=== PATIENT | female | born 1990 | race Caucasian/White ===

== ENCOUNTER 2024-03-01 19:28 | Emergency (ER) | payer OTHER, SELFPAY ==
[2024-03-01 19:38] VITALS: BP 124/81; PULSE 78; RESP 18; TEMP 36.1; O2SAT 100
--- NOTE | 2024-03-01 19:38 | PC.NURSE ---
in br to obtain ua spec.
--- NOTE | 2024-03-01 19:47 | ED.FEMALEGU ---
HPI - Female Genitourinary General Chief complaint: Urogenital-Female Stated complaint: Urinary Problem History of Present Illness HPI Narrative: patient is a 33-year-old female, without significant past medical history, presents to [facility] with 2 day history of dysuria with slight abnormal vaginal discharge. She denies malodor, she denies STI concerns. She states that she believes she had a urinary tract infection and subsequently took 2 leftover tablet of metronidazole, which gave her significant symptom relief. She has no flank pain, no fever, no vomiting. She has 1 remaining dose of metronidazole in her possession and thought she needed more antibiotic therapy, prompting her visit. She denies chance of . She has no other complaints. Related Data Home Medications Medication Instructions Recorded Confirmed buspirone 15 mg tablet mg 03/01/24 drospirenone 3 mg-ethinyl tablet 03/01/24 estradiol 0.02 mg tablet (Citlalyynelizabeth (28)) fluoxetine 20 mg capsule mg 03/01/24 fluoxetine 40 mg capsule mg 03/01/24 lamotrigine 200 mg tablet mg 03/01/24 Allergies Allergy/AdvReac Type Severity Reaction Status Date / Time No Known Allergies Allergy Verified 03/01/24 19:37 Review of Systems Genitourinary: Comments: Refer to HPI Exam Const: General: healthy appearing, no acute distress and alert Nutritional Appearance: well nourished Orientation/consciousness: patient oriented x3 Limitations: no limitations HENMT: Head: normal to inspection Ears: external ears normal Mouth: Yes Normal oral and palatal mucosa present Eyes: Conjunctivae: conjunctivae normal EOM: EOMs intact bilaterally Neck: Neck: normal visual inspection and no meningeal signs Resp: Effort & Inspection: normal respiratory effort Auscultation: clear to auscultation bilaterally Cardio: Rate: regular rate Rhythm: regular rhythm GI: GI Palp: Yes Soft to palpation, No Tenderness to palpation present (GI), No Guarding due to palpation present (GI), No Rigid due to palpation, No Hernia present, No Palpable mass present and No Rebound tenderness present : General: Yes bladder normal to palpation and Yes no CVA tenderness Skin: General skin exam: normal color Rashes: no rashes Neuro: General: patient oriented x3, moves all extremities, no meningeal signs, no focal motor deficits and CN's II-XI intact bilaterally Cranial nerves: Yes Nystagmus not present Speech: normal speech Gait exam (Neuro): Normal gait present Extrem: General: normal to inspection, no clubbing, cyanosis or edema and no pedal edema Psych: Appearance: grossly normal Mental Status: mental status grossly normal Affect: normal affect Course Course Emergency Course: Patient's urine dipstick is unremarkable. Urine cultures ordered. Patient's symptoms improved with metronidazole, therefore, will continue metronidazole therapy however she is advised that this is not a typical antibiotic use for acute cystitis and concerns for fracture vaginosis versus STI are mentioned. Patient states that she is not a risk for an STI as she is in a monogamous relationship and she has declined her STI screening stay. She does agree to follow-up with her OBGYN of her symptoms are not resolving and she will Proceed the ER if her symptoms worsen or she develops fevers, flank pain or vomiting. Level of Care: Express Care Visit ([id number]) Vital Signs Vital signs: Vital Signs Temperature 36.1 C L 03/01/24 19:38 Pulse Rate 78 03/01/24 19:38 Respiratory Rate 18 03/01/24 19:38 Blood Pressure 124/81 03/01/24 19:38 Pulse Oximetry 100 03/01/24 19:38 Oxygen Delivery Room Air 03/01/24 19:38 Temperature 36.1 C L 03/01/24 19:38 Pulse Rate 78 03/01/24 19:38 Respiratory Rate 18 03/01/24 19:38 Blood Pressure 124/81 03/01/24 19:38 Pulse Oximetry 100 03/01/24 19:38 Oxygen Delivery Room Air 03/01/24 19:38 MDM - Female Genitourinary MDM Narrative
[2024-03-02 03:21] LABS: EDUAAPPEAR Cloudy; EDUABILI Negative; EDUABLOOD Negative; EDUACOLOR1 Yellow; EDUAGLUCOSE Negative; EDUAKETONE Negative; EDUALEUKO Negative; EDUANITRATE Negative; EDUAPROTEIN Negative; EDUAUROBILI 0.2
== END 2024-03-01 20:02 | disposition home or self-care (01) ==
PROVIDERS: Emergency Provider Nurse Practitioner Family; PCP Physician Assistant
DX: R30.0 Dysuria (principal)
CPT/HCPCS: 81003; 87086; 99203; G0463

== ENCOUNTER 2024-08-29 16:40 | Emergency (ER) | payer OTHER, SELFPAY ==
[2024-08-29 16:54] VITALS: BP 128/80; PULSE 93; RESP 16; TEMP 36.6; O2SAT 98
[2024-08-29 17:19] LABS: EDCOVIDSCREEN Negative (Negative); EDINFLUASCREEN Positive (Negative); EDINFLUBSCREEN Negative (Negative)
--- NOTE | 2024-08-29 17:49 | ED_ITS ---
HPI - General Adult General Chief complaint: Upper Respiratory Infection Stated complaint: Vomiting/Diarrhea/Body Aches/Chills Source: patient Mode of arrival: ambulatory Limitations: no limitations History of Present Illness HPI narrative: Patient presents for evaluation sick symptoms for last 2 days. Symptoms body aches, cough, nausea, vomiting, diarrhea hot flashes and chills. She denies any fever shortness of breath. Her daughter is being evaluated here for similar symptoms. Her son also has similar symptoms. She is taking Tylenol and ibuprofen for symptoms. She smokes half pack per day. Related Data Home Medications ?Medication ?Instructions ?Recorded ?Confirmed ?Last Taken ?Type buspirone 15 mg tablet 15 mg PO DAILY 03/01/24 Unknown History drospirenone 3 mg-ethinyl 1 tablet PO DAILY 03/01/24 Unknown History estradiol 0.02 mg tablet (Loryna (28)) fluoxetine 20 mg capsule mg 03/01/24 Unknown History fluoxetine 40 mg capsule 40 mg PO QPM 03/01/24 Unknown History lamotrigine 200 mg tablet 200 mg PO Q12H 03/01/24 Unknown History bupropion HCl 150 mg tablet,12 hr 150 mg PO Q12H 08/29/24 Unknown History sustained-release sumatriptan succinate 50 mg tablet mg PO 08/29/24 Unknown History Allergies Allergy/AdvReac Type Severity Reaction Status Date / Time No Known Allergies Allergy Verified 08/29/24 16:51 Review of Systems Review of Systems: CONSTITUTIONAL: Reports hot flashes and chills. Denies fever. EYES: Denies visual changes, redness, or discharge. ENT: Denies rhinorrhea, congestion, sore throat, or otalgia. CARDIOVASCULAR: Denies chest pain, palpitations, or edema. RESPIRATORY: Reports cough. Denies shortness of breath. GASTROINTESTINAL: Reports nausea, vomiting, diarrhea GENITOURINARY: Denies dysuria or hematuria. SKIN: Denies rash or itching. MUSCULOSKELETAL: Reports generalized body aches. NEUROLOGIC: Denies headache, numbness, dizziness, or weakness. PSYCHIATRIC: Denies anxiety or depression. [facility] Past Medical History Medical History Anxiety Depression Surgical History Surgical History No pertinent past surgical history Family History Family History (Reviewed 08/29/24 @ 17:51 by Denis Sharp [facility], ) Mother Family history non-contributory Social History Social History (Reviewed 08/29/24 @ 17:51 by Denis Sharp [facility], ) Smoking packs per day: 0.5 Smoking cigarettes per day: 10.0 Smoking status: Current every day smoker Tobacco type: cigarettes and e-cigarettes/vaping Living arrangements: with family Gender identity (if verbalized by the patient): Female Spiritual care concerns: No Exam Narrative: GENERAL: Well-appearing, well-nourished, and in no acute distress. HEAD: Normocephalic, atraumatic. EYES: PERRLA and EOMI. ENT: Nares clear, no rhinorrhea or epistaxis. Mucous membranes moist. Oropharynx without tonsillar hypertrophy exudate or other lesions. Bilateral TMs pearly hernandez nonbulging NECK: Supple. No adenopathy or masses. No carotid bruits or JVD CHEST: Clear to auscultation. No respiratory distress. No wheezes rales or rhonchi HEART: Regular rate and rhythm. No murmur heard. Normal peripheral pulses. ABDOMEN: Soft, nontender, nondistended, normal active bowel sounds. EXTREMITIES: Normal range of motion. No edema. SKIN: Warm, dry, no rash. NEURO: No focal deficits. Alert and oriented x3. PSYCH: Normal mood and affect. Course Course Emergency Course: This is a 33-year-old female who presented for evaluation of sick symptoms. Influenza B and COVID negative. Influenza A positive. Will treat with Tamiflu and Zofran. Increase hydration. [id number] agents for symptom management. Follow up with primary provider. Go to the ER for worsening symptoms. Patient in agreement with plan of care. Level of Care: Express Care Visit Vital Signs Vital signs: Vital Signs Temperature 36.6 C 08/29/24 16:54 Pulse Rate 93 08/29/24 16:54 Respiratory Rate 16 08/29/24 16:54 Blood Pressure 128/80 08/29/24 16:54 Pulse Oximetry 98 08/29/24 16:54 Oxygen Delivery Room Air 08/29/24 16:54 Temperature 36.6 C 08/29/24 16:54 Pulse Rate 93 08/29/24 16:54 Respiratory Rate 16 08/29/24 16:54 Blood Pressure 128/80 08/29/24 16:54 Pulse Oximetry 98 08/29/24 16:54 Oxygen Delivery Room Air 08/29/24 16:54 Medical Decision Making Vital Signs Vital Signs: Vital Signs Temperature 36.6 C 08/29/24 16:54 Pulse Rate 93 08/29/24 16:54 Respiratory Rate 16 08/29/24 16:54 Blood Pressure 128/80 08/29/24 16:54 Pulse Oximetry 98 08/29/24 16:54 Oxygen Delivery Room Air 08/29/24 16:54 Temperature 36.6 C 08/29/24 16:54 Pulse Rate 93 08/29/24 16:54 Respiratory Rate 16 08/29/24 16:54 Blood Pressure 128/80 08/29/24 16:54 Pulse Oximetry 98 08/29/24 16:54 Oxygen Delivery Room Air 08/29/24 16:54 Lab Data Labs: Lab Results 08/29/24 Range/Units 17:17 POC Influenza A Ag Positive (Negative) POC Influenza B Ag Negative (Negative) POC SARS CoV-2 Ag Negative (Negative) Discharge Plan Discharge Clinical Impression: Influenza A Patient Disposition: Home, Self-Care Condition: Stable Instructions: Antibiotic Form, Influenza (ED) Patient Language: Icelandic Prescriptions: New oseltamivir [Tamiflu] 75 mg capsule 75 mg PO Q12H 5 Days Qty: 10 0RF ondansetron 4 mg tablet,disintegrating 4 mg PO Q8H PRN (Reason: nausea and vomiting) Qty: 15 0RF No Action fluoxetine 40 mg capsule 40 mg PO QPM lamotrigine 200 mg tablet 200 mg PO Q12H fluoxetine 20 mg capsule buspirone 15 mg tablet 15 mg PO DAILY drospirenone-ethinyl estradiol [Loryna (28)] 3-0.02 mg tablet 1 tablet PO DAILY bupropion HCl 150 mg tablet sustained-release 12 hr 150 mg PO Q12H sumatriptan succinate 50 mg tablet PO Follow-up/Referrals: Ciera,KAMRON García [Primary Care Provider] - Stand Alone Forms: Work/School Release IP Time of Disposition: 17:38
--- OUTSIDE RECORDS SUMMARY | 2024-08-31 03:20 | XMS_ITS | Clinical Summary ---
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 BRAR SYSTEMS SOFTWARE DESIGNER Active Last Documented On 03/17/2020 2:24PM ; [facility] Note: Sees psych in [facility] Plan of Treatment No Plan of Treatment Recorded Assessments Includes: Assessments from this encounter No Assessments Recorded Medical Equipment - Implanted Devices Includes: Current Devices No Medical Equipment Recorded Medications Includes: Medications discussed during this encounter and other current Medications Current Medications (continue as prescribed) FLUoxetine HCl 40 MG Oral Capsule 03/17/2020 Provide r: Diagnosis: Last Documented On 03/17/2020 1:48PM By SIM MORALES ; [facility] LaMICtal 200 MG Oral Tablet 03/17/2020 Provider: Diagnosis: Last Documented On 03/17/2020 1:49PM By SIM MORALES ; [facility] Medications Administered Includes: Administered Medications from this encounter No Administered Medications Recorded Results Includes: Results discussed during this encounter No Results Recorded For Specified Dates History of Present Illness Includes: History of Present Illness from this encounter No History of Present Illness Recorded Social History No Social History Recorded - Smoking Status Unknown Medical History Includes: Medical History addressed during this encounter No Medical History Recorded Family History Includes: Family History addressed during this encounter No Family History Recorded Review of Systems Includes: Review of Systems from this encounter No Review of Systems Recorded Mental Status Includes: Mental Status from this encounter No Mental Status Recorded Functional Status Includes: Functional Status from this encounter No Functional Status Recorded Physical Exam Includes: Physical Exam from this encounter No Physical Exam Recorded Allergies Includes: Active Allergies Substance Type Reaction Onset Date Resolved Date Statu s Latex Allergy Skin Rashes / Er uption of skin, Hives / Urticaria 09/03/2015 Active Last Documented On 0 1:49PM ; [facility] Amoxicillin Allergy Skin Rashes / Er uption of skin, Hives / Urticaria 09/03/2015 Resolved Last Documented On 0 1:50PM ; [facility] Encounters Encounter Provider Location Date Check-In Time Check-Out Time Diagnosis [Patient Encounter] JORGE BRAR [facility] 03/11/20 21 3:33PM 11:59PM Insurance Includes: Active Insurance Policies Plan Name Member ID Group # Subscriber Relationship Effect citlali Dates - [facility] [id number] DIDIER Rios Clinical Notes Includes: Clinical Notes from this encounter No Clinical Notes Recorded
--- OUTSIDE RECORDS SUMMARY | 2024-08-31 03:20 | XMS_ITS ---
Author Organization [facility] Address [address] [place] [address] Phone Care Team Providers Care Proposal Consultant Name Role Phone MARK LEE MD Primary Care Provider Unavail able Problems Includes: Active, inactive, and resolved Problems All Visits Onset Date Resolved Date Provider Condition S tatus Exposure To Herpes Simplex 09/03/2015 Unknown BERENICE SMITH MD Resolved Last Documented On 09/03/2015 2:58PM ; [facility] Note: was Closed. History of Depression 09/03/2015 Unknown BERENICE SMITH MD Resolved Last Documented On 09/03/2015 2:58PM ; [facility] Note: was Closed. History of Diabetes Mellitus 09/03/2015 Unknown BERENICE SMITH MD Resolved Last Documented On 09/03/2015 2:58PM ; [facility] Note: was Closed. History of Essential Hypertension 09/03/2015 Unknown BERENICE SMITH MD Resolved Last Documented On 09/03/2015 2:58PM ; [facility] Note: was Closed. History of Heart Disease 09/03/2015 Unknown BERENICE SMITH MD Resolved Last Documented On 09/03/2015 2:58PM ; [facility] Note: was Closed. History of Hematologic Disorders 09/03/2015 Unknown BERENICE SMITH MD Resolved Last Documented On 09/03/2015 2:58PM ; [facility] Note: was Closed. History of Psychiatric Disorders 09/03/2015 Unknown BERENICE SMITH MD Resolved Last Documented On 09/03/2015 2:58PM ; [facility] Note: was Closed. Reported Family History of Defects 09/03/2015 Unknown BERENICE SMITH MD Resolved Last Documented On 09/03/2015 2:58PM ; [facility] Note: was Closed. Respiratory Disorders 09/03/2015 Unknown BERENICE SMITH MD Resolved Last Documented On 09/03/2015 2:58PM ; [facility] Note: was Closed. Smoking During 09/03/2015 Unknown BERENICE SMITH MD Resolved Last Documented On 09/03/2015 2:58PM ; [facility] Note: was Closed. Tobacco Use 09/03/2015 Unknown BERENICE SMITH MD Resolved Last Documented On 09/03/2015 2:58PM ; [facility] Note: was Closed. Major depressive disorder, recurrent, moderate 03/17/2015 JORGE VASQUEZ Active Last Documented On 03/17/2020 2:24PM ; [facility] Note: Sees psych in [facility] [place] Plan of Treatment Findings Encounter Date Follow up: Yearly and as charlette pickard Gave Zyrtec samples. Patient to follow up if migraines do not improve with Zyrtec We will call with lab results NEW PATIENT VISIT with JORGE VASQUEZ 03/17/2020 Last Documented On 0 2:47PM ; [facility] Ordered return to the clinic if condition worsens or new symptoms arise NEW PATIENT VISIT with JORGE BRAR MULTICRAFT OPERATOR 03/17/2020 Last Documented On 0 2:47PM ; [facility] Assessments Includes: Assessments for all patient encounters Findings Encounter Date Allergic rhinitis NEW PATIENT VISIT with JORGE VASQUEZ 03/17/2020 Last Documented On 0 2:47PM ; [facility] Classic migraine (with aura) without intractable migraine without status migrainosus NEW PATIENT VISIT with JORGE BRAR MULTICRAFT OPERATOR 03/17/2020 Last Documented On 0 2:47PM ; [facility] Contraceptive management NEW PATIENT VISIT with JORGE VASQUEZ 03/17/2020 Last Documented On 0 2:47PM ; [facility] Routine adult history and ph ysical (18-64 yrs) with abnormal findings NEW PATIENT VISIT with JORGE BRAR MULTICRAFT OPERATOR 03/17/2020 Last Documented On 0 2:47PM ; [facility] Medical Equipment - Implanted Devices Includes: Current and historical Devices No Medical Equipment Recorded Medications Includes: Current and historical Medications Current Medications (continue as prescribed) FLUoxetine HCl 40 MG Oral Capsule 03/17/2020 Provide r: Diagnosis: Last Documented On 03/17/2020 1:48PM By SIM MORALES ; [facility] LaMICtal 200 MG Oral Tablet 03/17/2020 Provider: Diagnosis: Last Documented On 03/17/2020 1:49PM By SIM MORALES ; [facility] Past Medications on file Drospirenone-Ethinyl Estradi ol 3-0.02 MG Oral Tablet 03/06/2021 - 02/05/2022 Provider: JORGE VASQUEZ Diagnosis: TAKE ONE TABLET BY MOUTH DAILY Last Documented On 03/06/2021 9:10AM By JORGE BRAR CORPORATE SCHEDULER ; [facility] CIRO 3-0.02 MG Oral Tablet 03/17/2020 - 03/12/2021 Prov ider: JORGE BRAR MULTICRAFT OPERATOR Diagnosis: One tablet daily Last Documented On 03/17/2020 2:29PM By JORGE BRAR CORPORATE SCHEDULER ; [facility] CIRO 3-0.02 MG Oral Tablet 03/17/2020 - 03/17/2020 Prov ider: Diagnosis: Last Documented On 03/17/2020 2:28PM By JORGE BRAR CORPORATE SCHEDULER ; [facility] Effexor XR 150 MG Capsule Ex tended Release 24 Hour 09/03/2015 - 03/17/2020 Provider: Diagnosis: Last Documented On 03/17/2020 1:49PM By SIM MORALES ; [facility] Wellbutrin SR 150 MG Tablet Extended Release 12 Hour 09/03/2015 - 03/17/2020 Provider: Diagnosis: Last Documented On 03/17/2020 1:49PM By SIM MORALES ; [facility] GoodSense Vitamins 28-0.8 MG Tablet 6 - 03/17/2020 Provider: Diagnosis: Last Documented On 03/17/2020 1:49PM By SIM MORALES ; [facility] Medications Administered Includes: Administered Medications in patient's chart No Administered Medications Recorded Results Includes: Results from 08/31/2023 through 08/31/2024 No Results Recorded For Specified Dates History of Present Illness History of Present Illness not supported for this document type No History of Present Illness Recorded Social History Description Last Updated Smoker 03/17/2020 Last Documented On 0 2:47PM ; [facility] Tobacco use 09/03/2015 Last Documented On 6 2:46PM ; [facility] Smoking Status Unknown Medical History Includes: Medical History in patient's chart Description Last Updated History of depression 09/03/2015 Last Documented On 6 2:46PM ; [facility] History of heart disease 09/03/2015 Last Documented On 6 2:46PM ; [facility] History of hematologic disorder 09/03/19 16 Last Documented On 6 2:46PM ; [facility] History of psychiatric disorders 016 Last Documented On 6 2:46PM ; [facility] Family History Includes: Family History in patient's chart No Family History Recorded Review of Systems Review of Systems not supported for this document type No Review of Systems Recorded Mental Status No Mental Status Recorded Functional Status No Functional Status Recorded Physical Exam Physical Exam not supported for this document type No Physical Exam Recorded Allergies Includes: Active, inactive, and resolved Allergies Substance Type Reaction Onset Date Resolved Date Statu s Latex Allergy Skin Rashes / Er uption of skin, Hives / Urticaria 09/03/2015 Active Last Documented On 0 1:49PM ; [facility] Amoxicillin Allergy Skin Rashes / Er uption of skin, Hives / Urticaria 09/03/2015 Resolved Last Documented On 0 1:50PM ; [facility] Insurance Includes: Active Insurance Policies Plan Name Member ID Group # Subscriber Relationship Effect citlali Dates 1 - [facility] [id number] DIDIER Rios Clinical Notes Includes: Signed Clinical Notes starting from 08/27/2022 No Clinical Notes Recorded
--- OUTSIDE RECORDS SUMMARY | 2024-08-31 03:20 | XMS_ITS ---
Care Plan - [facility] Created on: August 31, 2024 DIDIER KENYON : 1990 Sex: Female Author Organization [facility] Address [address] [place] [address] Phone Care Team Providers Care Automotive Service Director Name Role Phone MARK LEE MD Primary Care Provider Unavail able
--- OUTSIDE RECORDS SUMMARY | 2024-08-31 03:20 | XMS_ITS | Clinical Summary ---
Author Organization [facility] Address [address] [place] [address] Phone Care Team Providers Care Gambling Monitor Name Role Phone MARK LEE MD Primary Care Provider Unavail able Reason for Visit and Chief Complaint [Patient Encounter] Problems Includes: Problems addressed during this encounter and other active Problems All Visits Onset Date Resolved Date Provider Condition S tatus Major depressive disorder, recurrent, moderate 03/17/2015 JORGE BRAR WIRE SPOOLER Active Last Documented On 03/17/2020 2:24PM ; [facility] Note: Sees psych in [facility] Plan of Treatment No Plan of [...] On 03/17/2020 1:48PM By SIM MORALES ; [facility] LaMICtal 200 MG Oral Tablet 03/17/2020 Provider: Diagnosis: Last Documented On 03/17/2020 1:49PM By SIM MORALES ; [facility] Medications Administered Includes: Administered Medications from this [...] Active Last Documented On 0 1:49PM ; [facility] Amoxicillin Allergy Skin Rashes / Er uption of skin, Hives / Urticaria 09/03/2015 Resolved Last Documented On 0 1:50PM ; [facility] Encounters Encounter Provider Location Date Check-In Time Check-Out Time Diagnosis [Patient Encounter] JORGE BRAR [facility] 03/11/20 21 3:34PM 11:59PM Insurance Includes: Active Insurance Policies Plan Name Member ID Group # Subscriber Relationship Effect citlali Dates - [facility] [id number] DIDIER Rios Clinical Notes Includes: Clinical Notes from this encounter No Clinical Notes Recorded
--- OUTSIDE RECORDS SUMMARY | 2024-08-31 03:21 | XMS_ITS ---
Author Organization [facility] Address [address] [place] [address] Phone Care Team Providers Care Flat Grinder Operator Name Role Phone MARK LEE MD Primary Care Provider Unavail able Problems Includes: Active, inactive, and resolved Problems All Visits Onset Date Resolved Date Provider Condition S tatus Exposure To Herpes Simplex 09/03/2015 Unknown BERENICE SMITH MD Resolved Last Documented On 09/03/2015 2:58PM ; [facility] Note: was Closed. History of Depression 09/03/2015 Unknown BERENICE SMITH MD Resolved Last Documented On 09/03/2015 2:58PM ; [facility] Note: was Closed. History of Diabetes Mellitus 09/03/2015 Unknown BERENICE SMITH MD Resolved Last Documented On 09/03/2015 2:58PM ; [facility] Note: was Closed. History of Essential Hypertension 09/03/2015 Unknown BERENICE SMITH MD Resolved Last Documented On 09/03/2015 2:58PM ; [facility] Note: was Closed. History of Heart Disease 09/03/2015 Unknown BERENICE SMITH MD Resolved Last Documented On 09/03/2015 2:58PM ; [facility] Note: was Closed. History of Hematologic Disorders 09/03/2015 Unknown BERENICE SMITH MD Resolved Last Documented On 09/03/2015 2:58PM ; [facility] Note: was Closed. History of Psychiatric Disorders 09/03/2015 Unknown BERENICE SMITH MD Resolved Last Documented On 09/03/2015 2:58PM ; [facility] Note: was Closed. Reported Family History of Defects 09/03/2015 Unknown BERENICE SMITH MD Resolved Last Documented On 09/03/2015 2:58PM ; [facility] Note: was Closed. Respiratory Disorders 09/03/2015 Unknown BERENICE SMITH MD Resolved Last Documented On 09/03/2015 2:58PM ; [facility] Note: was Closed. Smoking During 09/03/2015 Unknown BERENICE SMITH MD Resolved Last Documented On 09/03/2015 2:58PM ; [facility] Note: was Closed. Tobacco Use 09/03/2015 Unknown BERENICE SMITH MD Resolved Last Documented On 09/03/2015 2:58PM ; [facility] Note: was Closed. Major depressive disorder, recurrent, moderate 03/17/2015 JORGE VASQUEZ Active Last Documented On 03/17/2020 2:24PM ; [facility] Note: Sees psych in [facility] Plan of Treatment Findings Encounter Date Follow up: Yearly and as charlette pickard Gave Zyrtec samples. Patient to follow up if migraines do not improve with Zyrtec We will call with lab results NEW PATIENT VISIT with JORGE VASQUEZ 03/17/2020 Last Documented On 0 2:47PM ; [facility] Ordered return to the clinic if condition worsens or new symptoms arise NEW PATIENT VISIT with JORGE BRAR HAND SPRING REPAIRER HELPER 03/17/2020 Last Documented On 0 2:47PM ; [facility] Assessments Includes: Assessments for all patient encounters Findings Encounter Date Allergic rhinitis NEW PATIENT VISIT with JORGE VASQUEZ 03/17/2020 Last Documented On 0 2:47PM ; [facility] Classic migraine (with aura) without intractable migraine without status migrainosus NEW PATIENT VISIT with JORGE BRAR HAND SPRING REPAIRER HELPER 03/17/2020 Last Documented On 0 2:47PM ; [facility] Contraceptive management NEW PATIENT VISIT with JORGE VASQUEZ 03/17/2020 Last Documented On 0 2:47PM ; [facility] Routine adult history and ph ysical (18-64 yrs) with abnormal findings NEW PATIENT VISIT with JORGE BRAR HAND SPRING REPAIRER HELPER 03/17/2020 Last Documented On 0 2:47PM ; [facility] Medical Equipment - Implanted Devices Includes: Current and historical Devices No Medical Equipment Recorded Medications Includes: Current and historical Medications Current Medications (continue as prescribed) FLUoxetine HCl 40 MG Oral Capsule 03/17/2020 Provide r: Diagnosis: Last Documented On 03/17/2020 1:48PM By SIM MORALES ; [facility] LaMICtal 200 MG Oral Tablet 03/17/2020 Provider: Diagnosis: Last Documented On 03/17/2020 1:49PM By SIM MORALES ; [facility] Past Medications on file Drospirenone-Ethinyl Estradi ol 3-0.02 MG Oral Tablet 03/06/2021 - 02/05/2022 Provider: JORGE VASQUEZ Diagnosis: TAKE ONE TABLET BY MOUTH DAILY Last Documented On 03/06/2021 9:10AM By JORGE BRAR TIRE WRAPPER ; [facility] CIRO 3-0.02 MG Oral Tablet 03/17/2020 - 03/12/2021 Prov ider: JORGE BRRA HAND SPRING REPAIRER HELPER Diagnosis: One tablet daily Last Documented On 03/17/2020 2:29PM By JORGE BRAR TIRE WRAPPER ; [facility] CIRO 3-0.02 MG Oral Tablet 03/17/2020 - 03/17/2020 Prov ider: Diagnosis: Last Documented On 03/17/2020 2:28PM By JORGE BRAR TIRE WRAPPER ; [facility] Effexor XR 150 MG Capsule Ex tended Release 24 Hour 09/03/2015 - 03/17/2020 Provider: Diagnosis: Last Documented On 03/17/2020 1:49PM By SIM MORALES ; [facility] Wellbutrin SR 150 MG Tablet Extended Release 12 Hour 09/03/2015 - 03/17/2020 Provider: Diagnosis: Last Documented On 03/17/2020 1:49PM By SIM MORALES ; [facility] GoodSense Vitamins 28-0.8 MG Tablet 6 - 03/17/2020 Provider: Diagnosis: Last Documented On 03/17/2020 1:49PM By SIM MORALES ; [facility] Medications Administered Includes: Administered Medications in patient's chart No Administered Medications Recorded Results Includes: Results from 08/31/2023 through 08/31/2024 No Results Recorded For Specified Dates History of Present Illness History of Present Illness not supported for this document type No History of Present Illness Recorded Social History Description Last Updated Smoker 03/17/2020 Last Documented On 0 2:47PM ; [facility] Tobacco use 09/03/2015 Last Documented On 6 2:46PM ; [facility] Smoking Status Unknown Medical History Includes: Medical History in patient's chart Description Last Updated History of depression 09/03/2015 Last Documented On 6 2:46PM ; [facility] History of heart disease 09/03/2015 Last Documented On 6 2:46PM ; [facility] History of hematologic disorder 09/03/19 16 Last Documented On 6 2:46PM ; [facility] History of psychiatric disorders 016 Last Documented On 6 2:46PM ; [facility] Family History Includes: Family History in patient's [...] Active Last Documented On 0 1:49PM ; [facility] Amoxicillin Allergy Skin Rashes / Er uption of skin, Hives / Urticaria 09/03/2015 Resolved Last Documented On 0 1:50PM ; [facility] Insurance Includes: Active Insurance Policies Plan Name Member ID Group # Subscriber Relationship Effect citlali Dates 1 - [facility] [id number] DIDIER Rios Clinical Notes Includes: Signed Clinical Notes starting from 08/27/2022 No Clinical Notes Recorded
--- OUTSIDE RECORDS SUMMARY | 2024-08-31 03:21 | XMS_ITS | Clinical Summary ---
Author Organization [facility] Address [address] [place] [address] Phone Care Team Providers Care Network Firewall Engineer Name Role Phone MARK LEE MD Primary Care Provider Unavail able Reason for Visit and Chief Complaint The Chief Complaint is: Patient is here to become established and is needing ocp refilled. She states she has been getting migraine headaches lately. She says she has had about 3 a week and takes benadryl and excedrine migraine which seems to help Problems Includes: Problems addressed during this encounter and other active Problems Current Visit Onset Date Resolved Date Provider Condwellingtono n Status History of Depression 09/03/2015 Unknown BERENICE SMITH MD Resolved Last Documented On 09/03/2015 2:58PM ; [facility] Note: was Closed. History of Heart Disease 09/03/2015 Unknown BERENICE SMITH MD Resolved Last Documented On 09/03/2015 2:58PM ; [facility] Note: was Closed. History of Hematologic Disorders 09/03/2015 Unknown BERENICE SMITH MD Resolved Last Documented On 09/03/2015 2:58PM ; [facility] Note: was Closed. History of Psychiatric Disorders 09/03/2015 Unknown BERENICE SMITH MD Resolved Last Documented On 09/03/2015 2:58PM ; [facility] Note: was Closed. Tobacco Use 09/03/2015 Unknown BERENICE SMITH MD Resolved Last Documented On 09/03/2015 2:58PM ; [facility] Note: was Closed. Major depressive disorder, recurrent, moderate 03/17/2015 JORGE BRAR ELECTRICAL CHECKOUT MECHANIC Active Last Documented On 03/17/2020 2:24PM ; [facility] Note: Sees psych in [facility] Plan of Treatment - Return to the clinic if condition worsens or new symptoms arise - Last Documented On 03/17/2020 2:47PM ; [facility] Follow up: Yearly and as needed Gave Zyrtec samples. Patient to follow up if migraines do not improve with Zyrtec We will call with lab results. - Last Documented On 03/17/2020 2:47PM ; [facility] Pending Tests Order Diagnosis Results Due Ordering Torsten patel Lab COMPREHENSIVE METABOLIC PANEL JORGE N MAYKEL ELECTRICAL CHECKOUT MECHANIC Last Documented On 1 2:55PM ; [facility] Lab LIPID PANEL, STANDARD 04/16/20 ALL CONNIE N SAGEZ ELECTRICAL CHECKOUT MECHANIC Last Documented On 1 2:55PM ; [facility] Assessments Includes: Assessments from this encounter Findings - [Z30.09 - Encounter for other general counseling and advice on contraception] Contraceptive management - Last Documented On 03/17/2020 2:47PM ; [facility] - [Z00.01 - Encounter for general adult medical examination with abnormal findings] Routine adult history and physical (18-64 yrs) with abnormal findings - Last Documented On 03/17/2020 2:47PM ; [facility] - [J30.9 - Allergic rhinitis, unspecified] Allergic rhinitis - Last Documented On 03/17/2020 2:47PM ; [facility] - [G43.109 - Migraine with aura, not intractable, without status migrainosus] Classic migraine (with aura) without intractable migraine without status migrainosus - Last Documented On 03/17/2020 2:47PM ; [facility] Medical Equipment - Implanted Devices Includes: Current Devices No Medical Equipment Recorded Medications Includes: Medications discussed during this encounter and other current Medications Discontinued / Stopped on this date on 09/03/2015 Effexor XR 150 MG Capsule Extended Release 24 Hour Provider: Diagnosis: Last Documented On 03/17/2020 1:49PM By SMI MORALES ; [facility] Wellbutrin SR 150 MG Tablet Extended Release 12 Hour Provider: Diagnosis: Last Documented On 03/17/2020 1:49PM By SIM MORALES ; [facility] GoodSense Vitamins 28-0.8 MG Tablet Provider: Diagnosis: Last Documented On 03/17/2020 1:49PM By SIM MORALES ; [facility] New / Renewed during this visit JORGE VASQUEZ on 03/17/2020 CIRO 3-0.02 MG Oral Tablet Provider: HIPOLITO VASQUEZ 90 day supply: 90 tablet, 3 refills Diagnosis: One tablet daily Pharmacy: [id number], [address] - Last Documented On 03/17/2020 2:29PM By JORGE BRAR NP ; [facility] Current Medications (continue as prescribed) FLUoxetine HCl 40 MG Oral Capsule 03/17/2020 Provide r: Diagnosis: Last Documented On 03/17/2020 1:48PM By SIM MORALES ; [facility] LaMICtal 200 MG Oral Tablet 03/17/2020 Provider: Diagnosis: Last Documented On 03/17/2020 1:49PM By SIM MORALES ; [facility] Past Medications on file Drospirenone-Ethinyl Estradi ol 3-0.02 MG Oral Tablet 03/06/2021 - 02/05/2022 Provider: JORGE VASQUEZ Diagnosis: TAKE ONE TABLET BY MOUTH DAILY Last Documented On 03/06/2021 9:10AM By JORGE BRAR NP ; [facility] Medications Administered Includes: Administered Medications from this encounter No Administered Medications Recorded Vital Signs Includes: Vital Signs from this encounter Vital Name 03/17/2020 01:50P Blood Pressure Sitting L 128/72 BP Cuff Size Regular Pulse Rate-Sitting (bpm) 82 Pulse Rhythm Regular Respiration Rate (breaths/min) 18 Temp-Oral (F) 98.3 Height (in) 62 Weight (lb) 190 Body Mass Index (kg/m2) 34.8 Body Surface Area (m2) 1.9 Oxygen Saturation (%) 98 Last Documented: On 03/17/2020 1:51PM ; [facility] Results Includes: Results discussed during this encounter No Results Recorded For Specified Dates History of Present Illness Includes: History of Present Illness from this encounter CLAUDINE CELESTE is a 29 year old female. - Allergy list reviewed - Medication reconciliation performed - No systemic symptoms - Head symptoms - Otolaryngeal symptoms - No cardiovascular symptoms - No pulmonary symptoms - No gastrointestinal symptoms - No genitourinary symptoms - No musculoskeletal symptoms - No skin symptoms Patient is being seen for a new patient appointment. She complains of frequent migraines. She states she has gotten them for years but they have been worse the past few months. She has been getting them 3 times a week and she feels pressure behind her eyes and sometimes vomits. She takes benadryl and excedrine when she gets them and it helps. She states she has never taken a prescription medication for them. She also reports a lot of sinus congestion lately and wonders if this could be causing them. Social History Description Last Updated Smoker 03/17/2020 Last Documented On 0 2:47PM ; [facility] Tobacco use was ten packs/da y 1/2 ppd since 13 y old; down to 3 cigs per day in preg: NTQS: discussed risks of PTL, PTDelivery, IUGR, and low weight 09/03/2015 Last Documented On 0 1:50PM ; [facility] Smoking Status Unknown Procedures and Surgical History Includes: Procedures from this encounter Procedures Code Diagnosis Performing Provider Service L ocation Service Date plan of care reviewed and agreed to Last Documented On 0 2:43PM ; [facility] Medical History Includes: Medical History addressed during this encounter Description Last Updated History of depression Dx'd at 11 y old; 09/03/2015 Last Documented On 0 1:50PM ; [facility] History of heart disease MGM: LA at 27 0 09/03/2015 Last Documented On 0 1:50PM ; [facility] History of hematologic disor denise 'my iron is always low' even when not 09/03/2015 Last Documented On 0 1:50PM ; [facility] History of psychiatric disorders borderl ine personality disorder; 09/03/2015 Last Documented On 0 1:50PM ; [facility] Family History Includes: Family History addressed during this encounter No Family History Recorded Review of Systems Includes: Review of Systems from this encounter Systemic: Not feeling poorly (malaise). No fever and no edema. Head: Headache. Otolaryngeal: No earache. Nasal discharge. No sore throat. Cardiovascular: No chest pain or discomfort, no palpitations, and the heart rate was not fast. Pulmonary: No dyspnea and not expressed as feeling short of breath. No cough and no wheezing. Gastrointestinal: No nausea, no vomiting, no diarrhea, and no constipation. Genitourinary: No dysuria. Neurological: No dizziness and no fainting. Mental Status Includes: Mental Status from this encounter Description Oriented to time, place, and person Functional Status Includes: Functional Status from this encounter No Functional Status Recorded Physical Exam Includes: Physical Exam from this encounter Allergies Includes: Active Allergies Substance Type Reaction Onset Date Resolved Date Statu s Latex Allergy Skin Rashes / Er uption of skin, Hives / Urticaria 09/03/2015 Active Last Documented On 0 1:49PM ; [facility] Amoxicillin Allergy Skin Rashes / Er uption of skin, Hives / Urticaria 09/03/2015 Resolved Last Documented On 0 1:50PM ; [facility] Encounters Encounter Provider Location Date Check-In Time Check-Out Time Diagnosis NEW PATIENT VISIT JORGE BRAR [facility] 03/17/20 20 1:45PM 2:33PM Classic Migraine with Aura Without Intractable Migraine Without Status Migrainosus,Ro utine History & Physical Adult with Abnormal Findings,Aller gic Rhinitis,Contr aceptive Management Insurance Includes: Active Insurance Policies Plan Name Member ID Group # Subscriber Relationship Effect citlali Dates - [facility] [id number] DIIDER Rios Clinical Notes Includes: Clinical Notes from this encounter No Clinical Notes Recorded
--- OUTSIDE RECORDS SUMMARY | 2024-08-31 03:21 | XMS_ITS | Clinical Summary ---
Author Organization [facility] Address [address] [place] [address] Phone Care Team Providers Care Securities Attorney Name Role Phone MARK LEE MD Primary Care Provider Unavail able Reason for Visit and Chief Complaint [Patient Encounter] Problems Includes: Problems addressed during this encounter and other active Problems All Visits Onset Date Resolved Date Provider Condition S tatus Major depressive disorder, recurrent, moderate 03/17/2015 JORGE BRAR SYSTEMS DESIGN ENGINEER Active Last Documented On 03/17/2020 2:24PM ; [facility] Note: Sees psych in [facility] Plan of Treatment No Plan of Treatment [...] On 03/17/2020 1:48PM By SIM MORALES ; [facility] LaMICtal 200 MG Oral Tablet 03/17/2020 Provider: Diagnosis: Last Documented On 03/17/2020 1:49PM By SIM MORALES ; [facility] Medications Administered Includes: Administered Medications from this [...] Active Last Documented On 0 1:49PM ; [facility] Amoxicillin Allergy Skin Rashes / Er uption of skin, Hives / Urticaria 09/03/2015 Resolved Last Documented On 0 1:50PM ; [facility] Encounters Encounter Provider Location Date Check-In Time Check-Out Time Diagnosis [Patient Encounter] JORGE BRAR [facility] 03/11/20 21 3:34PM 11:59PM Insurance Includes: Active Insurance Policies Plan Name Member ID Group # Subscriber Relationship Effect citlali Dates - [facility] [id number] DIDIER Rios Clinical Notes Includes: Clinical Notes from this encounter No Clinical Notes Recorded
--- OUTSIDE RECORDS SUMMARY | 2024-08-31 03:21 | XMS_ITS | Clinical Summary ---
Author Organization [facility] Address [address] [place] [address] Phone Care Team Providers Care Stocking And Box Shop Supervisor Name Role Phone MARK LEE MD Primary Care Provider Unavail able Reason for Visit and Chief Complaint [Patient Encounter] Problems Includes: Problems addressed during this encounter and other active Problems All Visits Onset Date Resolved Date Provider Condition S tatus Major depressive disorder, recurrent, moderate 03/17/2015 JORGE BRAR DIRECTOR OF PARTNERSHIPS Active Last Documented On 03/17/2020 2:24PM ; [facility] Note: Sees psych in [facility] Plan of Treatment No Plan of [...] On 03/17/2020 1:49PM By SIM MORALES ; [facility] Medications Administered Includes: Administered Medications [...] Active Last Documented On 0 1:49PM ; [facility] Amoxicillin Allergy Skin Rashes / Er uption of skin, Hives / Urticaria 09/03/2015 Resolved Last Documented On 0 1:50PM ; [facility] Encounters Encounter Provider Location Date Check-In Time Check-Out Time Diagnosis [Patient Encounter] JORGE BRAR [facility] 03/11/20 21 3:33PM 11:59PM Insurance Includes: Active Insurance Policies Plan Name Member ID Group # Subscriber Relationship Effect citlali Dates - [facility] [id number] DIDIER Rios Clinical Notes Includes: Clinical Notes from this encounter No Clinical Notes Recorded
--- OUTSIDE RECORDS SUMMARY | 2024-08-31 03:21 | XMS_ITS | Clinical Summary ---
Author Organization [facility] Address [address] [place] [address] Phone Care Team Providers Care Stamping Mill Tender Name Role Phone MARK LEE MD Primary Care Provider Unavail able Reason for Visit and Chief Complaint LAB Problems Includes: Problems addressed during this encounter and other active Problems All Visits Onset Date Resolved Date Provider Condition S tatus Major depressive disorder, recurrent, moderate 03/17/2015 JORGE BRAR ANGIOGRAPHY TECHNOLOGIST Active Last Documented On 03/17/2020 2:24PM ; [facility] Note: Sees psych in [facility] Plan of Treatment No Plan [...] On 03/17/2020 1:48PM By SIM MORALES ; [facility] LaMICtal 200 MG Oral Tablet 03/17/2020 Provider: Diagnosis: Last Documented On 03/17/2020 1:49PM By SIM MORALES ; [facility] Medications Administered Includes: Administered [...] Active Last Documented On 0 1:49PM ; [facility] Amoxicillin Allergy Skin Rashes / Er uption of skin, Hives / Urticaria 09/03/2015 Resolved Last Documented On 0 1:50PM ; [facility] Encounters Encounter Provider Location Date Check-In Time Check-Out Time Diagnosis LAB [facility] 03/18/2020 9:00AM 9:02AM Insurance Includes: Active Insurance Policies Plan Name Member ID Group # Subscriber Relationship Effect citlali Dates - [facility] [id number] DIDIER Rios Clinical Notes Includes: Clinical Notes from this encounter No Clinical Notes Recorded
--- OUTSIDE RECORDS SUMMARY | 2024-08-31 03:21 | XMS_ITS | Clinical Summary ---
Author Organization [facility] Address [address] [place] [address] Phone Care Team Providers Care Grocery Team Member Name Role Phone MARK LEE MD Primary Care Provider Unavail able Reason for Visit and Chief Complaint [Patient Encounter] Problems Includes: Problems addressed during this encounter and other active Problems All Visits Onset Date Resolved Date Provider Condition S tatus Major depressive disorder, recurrent, moderate 03/17/2015 JORGE BRAR METAL BONDING HELPER Active Last Documented On 03/17/2020 2:24PM ; [facility] Note: Sees psych in [facility] [place] Plan of Treatment No Plan of Treatment [...] On 03/17/2020 1:48PM By SIM MORALES ; [facility] LaMICtal 200 MG Oral Tablet 03/17/2020 Provider: Diagnosis: Last Documented On 03/17/2020 1:49PM By SIM MORALES ; [facility] Medications Administered Includes: Administered Medications [...] Active Last Documented On 0 1:49PM ; [facility] Amoxicillin Allergy Skin Rashes / Er uption of skin, Hives / Urticaria 09/03/2015 Resolved Last Documented On 0 1:50PM ; [facility] Encounters Encounter Provider Location Date Check-In Time Check- Out Time Diagnosis [Patient Encounter] BERENICE SMITH MD [facility] LANGUAGE TEACHER 7 1:06PM 11:59PM Insurance Includes: Active Insurance Policies Plan Name Member ID Group # Subscriber Relationship Effect citlali Dates - [facility] [id number] DIDIER Rios Clinical Notes Includes: Clinical Notes from this encounter No Clinical Notes Recorded
--- OUTSIDE RECORDS SUMMARY | 2024-08-31 03:21 | XMS_ITS ---
Care Plan - [facility] Created on: August 31, 2024 DIDIER KENYON : 1990 Sex: Female Author Organization [facility] Address [address] [place] [address] Phone Care Team Providers Care Data Warehouse Analyst Name Role Phone MARK LEE MD Primary Care Provider Unavail able
--- OUTSIDE RECORDS SUMMARY | 2024-08-31 03:21 | XMS_ITS | Clinical Summary ---
Author Organization [facility] Address [address] [place] [address] Phone Care Team Providers Care Associate Professor Computer Science Name Role Phone MARK LEE MD Primary [...] Resolved Last Documented On 09/03/2015 2:58PM ; [facility] Note: was Closed. History of Heart Disease 09/03/2015 Unknown BERENICE SMITH MD Resolved Last Documented On 09/03/2015 2:58PM ; [facility] Note: was Closed. History of Hematologic Disorders 09/03/2015 Unknown BERENICE SMITH MD Resolved Last Documented On 09/03/2015 2:58PM ; [facility] Note: was Closed. History of Psychiatric Disorders 09/03/2015 Unknown BERENICE SMITH MD Resolved Last Documented On 09/03/2015 2:58PM ; [facility] Note: was Closed. Tobacco Use 09/03/2015 Unknown BERENICE SMITH MD Resolved Last Documented On 09/03/2015 2:58PM ; [facility] Note: was Closed. 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 Patient to follow up if migraines do not improve with Zyrtec We will call with lab results. - Last Documented On 03/17/2020 2:47PM ; [facility] Pending Tests Order Diagnosis Results Due Ordering Torsten patel Lab COMPREHENSIVE METABOLIC PANEL JORGE N MAYKEL SOLUTION MAKE UP OPERATOR Last Documented On 1 2:55PM ; [facility] Lab LIPID PANEL, STANDARD 04/16/20 ALL CONNIE N SAGEZ SOLUTION MAKE UP OPERATOR Last Documented On 1 2:55PM ; [facility] Assessments Includes: Assessments from this encounter Findings - [Z30.09 - Encounter for other general counseling and advice on contraception] Contraceptive management - Last Documented On 03/17/2020 2:47PM ; [facility] - [Z00.01 - Encounter for general adult medical examination with abnormal findings] Routine adult history and physical (18-64 yrs) with abnormal findings - Last Documented On 03/17/2020 2:47PM ; [facility] - [J30.9 - Allergic rhinitis, unspecified] Allergic rhinitis - Last Documented On 03/17/2020 2:47PM ; [facility] - [G43.109 - Migraine with aura, not intractable, without status migrainosus] Classic migraine (with aura) without intractable migraine without status migrainosus - Last Documented On 03/17/2020 2:47PM ; [facility] Medical Equipment - Implanted Devices Includes: Current Devices No Medical Equipment Recorded Medications Includes: Medications discussed during this encounter and other current Medications Discontinued / Stopped on this date on 09/03/2015 Effexor XR 150 MG Capsule Extended Release 24 Hour Provider: Diagnosis: Last Documented On 03/17/2020 1:49PM By SIM MORALES ; [facility] Wellbutrin SR 150 MG Tablet Extended Release 12 Hour Provider: Diagnosis: Last Documented On 03/17/2020 1:49PM By SIM MORALES ; [facility] GoodSense Vitamins 28-0.8 MG Tablet Provider: Diagnosis: Last Documented On 03/17/2020 1:49PM By SIM MORALES ; [facility] New / Renewed during this visit JORGE VASQUEZ on 03/17/2020 CIRO 3-0.02 MG Oral Tablet Provider: HIPOLITO VASQUEZ 90 day supply: 90 tablet, 3 refills Diagnosis: One tablet daily Pharmacy: [id number], [address] - Last Documented On 03/17/2020 2:29PM By JORGE BRAR NP ; [facility] Current Medications (continue as prescribed) FLUoxetine HCl 40 MG Oral Capsule 03/17/2020 Provide r: Diagnosis: Last Documented On 03/17/2020 1:48PM By SIM MORALES ; [facility] LaMICtal 200 MG Oral Tablet 03/17/2020 Provider: Diagnosis: Last Documented On 03/17/2020 1:49PM By SIM MORALES ; [facility] Past Medications on file Drospirenone-Ethinyl Estradi ol 3-0.02 MG Oral Tablet 03/06/2021 - 02/05/2022 Provider: JORGE VASQUEZ Diagnosis: TAKE ONE TABLET BY MOUTH DAILY Last Documented On 03/06/2021 9:10AM By JORGE BRAR NP ; [facility] Medications Administered Includes: Administered [...] 98 Last Documented: On 03/17/2020 1:51PM ; [facility] Results Includes: Results discussed during this encounter [...] 03/17/2020 Last Documented On 0 2:47PM ; [facility] Tobacco use was ten packs/da y 1/2 ppd since 13 y old; down to 3 cigs per day in preg: NTQS: discussed risks of PTL, PTDelivery, IUGR, and low weight 09/03/2015 Last Documented On 0 1:50PM ; [facility] Smoking Status Unknown Procedures and Surgical History Includes: Procedures from this encounter Procedures Code Diagnosis Performing Provider Service L ocation Service Date plan of care reviewed and agreed to Last Documented On 0 2:43PM ; [facility] Medical History Includes: Medical History addressed during this encounter Description Last Updated History of depression Dx'd at 11 y old; 09/03/2015 Last Documented On 0 1:50PM ; [facility] History of heart disease MGM: CO at 27 0 09/03/2015 Last Documented On 0 1:50PM ; [facility] History of hematologic disor denise 'my iron is always low' even when not 09/03/2015 Last Documented On 0 1:50PM ; [facility] History of psychiatric disorders borderl ine personality disorder; 09/03/2015 Last Documented On 0 1:50PM ; [facility] Family History Includes: Family History addressed during [...] Active Last Documented On 0 1:49PM ; [facility] Amoxicillin Allergy Skin Rashes / Er uption of skin, Hives / Urticaria 09/03/2015 Resolved Last Documented On 0 1:50PM ; [facility] Encounters Encounter Provider Location Date Check-In Time Check-Out Time Diagnosis NEW PATIENT VISIT JORGE BRAR [facility] 03/17/20 20 1:45PM 2:33PM Classic Migraine with Aura Without Intractable Migraine Without Status Migrainosus,Ro utine History & Physical Adult with Abnormal Findings,Aller gic Rhinitis,Contr aceptive Management Insurance Includes: Active Insurance Policies Plan Name Member ID Group # Subscriber Relationship Effect citlali Dates - [facility] [id number] DIDIER Rios Clinical Notes Includes: Clinical Notes from this encounter No Clinical Notes Recorded
--- OUTSIDE RECORDS SUMMARY | 2024-08-31 03:21 | XMS_ITS | Clinical Summary ---
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 Last Documented On 03/17/2020 2:24PM ; [facility] Note: Sees psych in [facility] Plan of Treatment No Plan [...] On 03/17/2020 1:48PM By SIM MORALES ; [facility] LaMICtal 200 MG Oral Tablet 03/17/2020 Provider: Diagnosis: Last Documented On 03/17/2020 1:49PM By SIM MORALES ; [facility] Medications Administered Includes: Administered Medications [...] 0 1:49PM ; [facility] Amoxicillin Allergy Skin Rashes / Er uption of skin, Hives / Urticaria 09/03/2015 Resolved Last Documented On 0 1:50PM ; [facility] Encounters Encounter Provider Location Date Check-In Time Check- Out Time Diagnosis [Patient Encounter] BERENICE SMITH MD [facility] MANAGER MASSAGE DEPARTMENT 7 1:06PM 11:59PM Insurance Includes: Active Insurance Policies Plan Name Member ID Group # Subscriber Relationship Effect citlali Dates - [facility] [id number] DIDIER Rios Clinical Notes Includes: Clinical Notes from this encounter No Clinical Notes Recorded
== END 2024-08-29 17:40 | disposition home or self-care (01) ==
PROVIDERS: Emergency Provider Nurse Practitioner; PCP Physician Assistant
DX: J10.1 Influenza due to other identified influenza virus with other respiratory manifestations (principal); Z20.822 Contact with and (suspected) exposure to COVID-19; F17.210 Nicotine dependence, cigarettes, uncomplicated; F17.290 Nicotine dependence, other tobacco product, uncomplicated
CPT/HCPCS: 87426; 87804; 99213; G0463